=== PATIENT | male | born 1970 | race Caucasian/White ===

== ENCOUNTER 2017-04-19 06:14 | Day surgery (SDC) | payer BC ==
[2017-04-19] VITALS (8 sets, daily range): BP systolic 112–155; BP diastolic 70–85
[~2017-04-19] VITALS: Ht 167.6 cm; Wt 68.0 kg
--- NOTE | 2017-04-19 06:16 | Anethesia Preoperative Eval ---
Anesthesia Pre-op PMH/ROS General Date of Evaluation: Apr 19, 2017 Time of Evaluation: 06:14 Anesthesiologist: wayne ASA Score: ASA 2 Mallampati Score Class I : Soft palate, uvula, fauces, pillars visible Class II: Soft palate, uvula, fauces visible Class III: Soft palate, base of uvula visible Class IV: Only hard plate visible Mallampati Classification: Class II Surgeon: abi Diagnosis: gerd Surgical Procedure: egd with biopsy Anesthesia History: none Social History: smoking - former smokr Family History: no anesthesia problems Allergies: Coded Allergies: No Known Allergies (Unverified , 04/18/17) Medications: see eMAR Past Medical History Gastrointestinal/Genitourinary: Reports: GERD Neurologic/Psychiatric: Reports: other - drecreased visual acuity Endocrine: Reports: hypothyroidism PSxH Narrative: tonsillectomy Anesthesia Pre-op Phys. Exam Physician Exam Constitutional: NAD Neurologic: CN 2-12 intact Cardiovascular: RRR Respiratory: CTA Gastrointestinal: S/NT/ND Airway Exam Mallampati Score: Class II MO: full Neck: supple TMD: 3fb ROM: full Teeth: intact Anesthesia Pre-op A/P Risk Assessment & Plan Assessment: asa2 Plan: mac Status Change Before Surgery: No Pre-Antibiotics Drug: MIREYA Marie Apr 19, 2017 06:16
[2017-04-19] MEDS ORDERED: LR 1000ml ONE (06:30)
[2017-04-19] MEDS ORDERED: Lidocaine 1% MPF 10mg/ml 5ml ONE (06:30)
[2017-04-19] MEDS ORDERED: Propofol 10mg/ml 20ml IV ONE (06:30)
[2017-04-19] MEDS ORDERED: CABERGOLINE0.5 MG PO (06:43)
[2017-04-19] MEDS ORDERED: SYNTHROID112 MCG ORAL (06:43)
[2017-04-19] MEDS ORDERED: TESTOSTERONE TD (06:46)
[2017-04-19] MEDS ORDERED: PRILOSEC10 M1 ORAL (06:47)
[2017-04-19] MEDS ORDERED: LR 1000ml 1,000 ML IVLG SCH ×2 (07:00→07:10)
--- NOTE | 2017-04-19 07:13 | Short Stay Surgery H&P ---
History of Present Illness History of Present Illness Chief Complaint see H&P HPI Ganga Telles is a 46 year old male who was admitted on for GERD Patient History Allergies: Coded Allergies: No Known Allergies (Unverified , 04/18/17) PAST MEDICAL HISTORY: Past Surgeries: Social History: Medication History Scheduled Cabergoline (Cabergoline), 0.5 MG PO DAILY, (Reported) Levothyroxine Sodium* (Synthroid*), 112 MCG ORAL DAILY, (Reported) Omeprazole Magnesium (Prilosec), 20 MG ORAL DAILY, (Reported) Testosterone (Testosterone), 10 GM TD DAILY, (Reported) Physical Exam Vital Signs Last Vital Signs Date Time Temp Pulse Resp B/P (MAP) Pulse Ox O2 Delivery O2 Flow Rate FiO2 04/19/17 06:52 97.7 77 18 138/77 97 Room Air Plan Attestation Are the patient's medical conditions optimized for surgery? JEANIE FENTON Apr 19, 2017 07:13
--- NOTE | 2017-04-19 07:13 | Pre-Procedure Note/Attestation ---
Pre-Procedure Note/Attestation Complete Prior to Procedure Planned Procedure: not applicable Procedure Narrative: egd Indications for Procedure Pre-Operative Diagnosis: gerd Attestation I attest that I discussed the nature of the procedure; its benefits; risks and complications; and alternatives (and the risks and benefits of such alternatives ), prior to the procedure, with the patient (or the patient's legal player services representative). I attest that, if there was a reasonable possibility of needing a blood transfusion, the patient (or the patient's legal player services representative) was given the [facility] standardized written summary, pursuant to the [place] Blood Safety Act ([place] Health and Safety Code # 1645, as amended). I attest that I re-evaluated the patient just prior to the surgery and that there has been no change in the patient's H&P, except as documented below: JEANIE FENTON Apr 19, 2017 07:13
[2017-04-19] MEDS ORDERED: Atropine Inj 1mg/10ml Syr IV PRN (07:15)
[2017-04-19] MEDS ORDERED: DiphenhydrAMINE 50mg/ml Inj IVP PRN (07:15)
[2017-04-19] MEDS ORDERED: Midazolam 2mg/2ml Inj IVP PRN (07:15)
[2017-04-19] MEDS ORDERED: Hydromorphone 0.5mg/0.5ml inj IVP PRN (07:15)
--- NOTE | 2017-04-19 07:59 | Immediate Post-Op Evaluation ---
Immediate Post-Op Evalulation Immediate Post-Op Evalulation Procedure: egd with biopsy Date of Evaluation: Apr 19, 2017 Time of Evaluation: 07:56 IV Fluids: lr Blood Products: none Estimated Blood Loss: negligible Blood Pressure Systolic: 142 Blood Pressure Diastolic: 70 Pulse Rate: 68 Respiratory Rate: 18 O2 Sat by Pulse Oximetry: 100 Temperature (Fahrenheit): 98.3 Pain Score (1-10): 0 Nausea: No Vomiting: No Complications none Patient Status: awake, reacts, patent Hydration Status: adequate Drug: MIREYA Marie Apr 19, 2017 07:59
--- NOTE | 2017-04-19 08:03 | 48 Hour Post Anesthesia Eval ---
Post Anesthesia Evaluation Procedure: egd with biopsy Date of Evaluation: Apr 19, 2017 Time of Evaluation: 08:02 Blood Pressure Systolic: 121 0: 85 Pulse Rate: 66 Respiratory Rate: 18 Temperature (Fahrenheit): 98.3 O2 Sat by Pulse Oximetry: 100 Airway: patent Nausea: No Vomiting: No Pain Intensity: 0 Hydration Status: adequate Cardiopulmonary Status: stable Mental Status/LOC: patient returned to baseline Post-Anesthesia Complications: none Follow-up care needed: N/A MIREYA GUNDERSON Apr 19, 2017 08:02
--- NOTE | 2017-04-19 08:23 | Endoscopy Procedure Note ---
Endoscopy Procedure Note Indication for Procedure: GERD Procedures Performed: EGD Operative Findings/Diagnosis: HH, food Specimen: yes Pt Tolerated Procedure Well: No Estimated Blood Loss: none Anesthesiologist: Danie Anesthesia: MAC Medication Given: see anesthesia record Implant(s) used?: No 50 yrs or older w/o bx or poly: Not Applicable 10yrs. F/U not recommended: Not Applicable If not recommended, why?: JEANIE FENTON Apr 19, 2017 08:23
--- NOTE | 2017-04-19 08:25 | Brief Operative Note ---
Immediate Post Operative Note Operative Note Chief Complaint: GERD Pre-op Diagnosis: gerd Procedure: EGD/bx Post-op Diagnosis: HH, Food Surgeon: abi Anesthesiologist: alexa Anesthesia: MAC, moderate sedation Specimen: yes Complications: none Condition: stable Fluids: se anesthesia Estimated Blood Loss: none Drains: none Implant(s) used?: No JEANIE FENTON Apr 19, 2017 08:25
--- NOTE | 2017-04-19 20:15 | Operative Note - Dictated ---
DATE OF OPERATION: 04/19/2017 PROCEDURE: Upper gastrointestinal endoscopy with biopsy. SURGEON: Roberto Colon M.D. ANESTHESIA: Please see the separate anesthesiologist notes for details. PRE-ENDOSCOPIC DIAGNOSIS: Gastroesophageal reflux symptoms, which are refractory to treatment. POST-ENDOSCOPIC DIAGNOSES: 1. A 4 cm hiatal hernia. 2. Significant amount of solid food in the fundus of the stomach making mucosal visualization limited. 3. Status post random biopsy of the duodenum, antrum, lower esophagus, and mid esophagus. PROCEDURE: The procedure, its risks, indications, alternatives, and possible complications were explained and informed consent was obtained. The patient was then sedated and a diagnostic upper endoscope was introduced into the oropharynx and advanced to the duodenum. The endoscope was gradually withdrawn. The mucosa examined carefully. Examination was notable for above findings. There were no ulcers or mass lesions identified. The endoscope was removed. The patient was sent to recovery in good condition. COMPLICATIONS: None. ASSESSMENT: This patient has significant degree of solid food in the stomach as indicated of likely gastroparesis. This together with a 4 cm hiatal hernia causing significant degree of reflux symptoms. The esophagus however did not show any evidence of esophagitis. Biopsies will be evaluated to rule out other pathologies. The patient may benefit from motility support. RECOMMENDATIONS: 1. Follow up biopsy results. 2. Outpatient followup. 3. Continue proton pump inhibitor. Roberto Colon M.D. DR: STEPHANIE JOB#: [id number] CC:
== END 2017-04-19 08:50 | disposition home or self-care (01) ==
LOC: GAS 06:14
DX: K21.9 Gastro-esophageal reflux disease without esophagitis (principal); K31.9 Disease of stomach and duodenum, unspecified; K44.9 Diaphragmatic hernia without obstruction or gangrene; E03.9 Hypothyroidism, unspecified; D35.2 Benign neoplasm of pituitary gland; F45.8 Other somatoform disorders; Z86.010 Personal history of colon polyps; Z80.0 Family history of malignant neoplasm of digestive organs; Z87.891 Personal history of nicotine dependence
CPT/HCPCS: 43239; J2704; J7120; 94003; 94150